=== PATIENT | female | born 1955 | race Caucasian/White ===

== ENCOUNTER 2018-10-31 06:09 | Inpatient (IN) ==
[2018-10-31] MEDS ORDERED: NALOXONE HCL 1 MG/1 ML SYRG ONE (06:19)
[2018-10-31] MEDS ORDERED: NALOXONE HCL 1 MG/1 ML SYRG IV ONE (06:23)
[2018-10-31] MEDS ORDERED: NORMAL SALINE 1,000 ML IV ONE (06:26)
[2018-10-31] MEDS ORDERED: LORazepam 2 MG/ML DISP.SYRIN IV ONE (06:41)
[2018-10-31] MEDS ORDERED: LORazepam 2 MG/ML DISP.SYRIN ONE (06:42)
[2018-10-31 06:56] LABS: Hemoglobin 12.5 gm/dL (12.5-16.0); Mean Cell Volume 108.2 fl (78-100); Mean Corpuscular Hgb Conc 30.5 g/dl (32-36); Mean Platelet Volume 9.7 fl (8-12.5); Platelet Count 413 K/mm3 (150-450); Red Blood Count 3.79 M/mm3 (4.2-5.4); Red Cell Distribution Width 13.3 % (11.5-14.0); White Blood Count 11.4 K/mm3 (4.0-10.5)
[2018-10-31 06:59] LABS: Albumin * 2.4 gm/dl (3.4-5.0); Anion Gap 11.6 mmol/L (6.8-13.8); BUN/Creatinine Ratio 33.8 (9.0-21.6); Bilirubin, Total 0.8 mg/dL (0.0-1.1); Ca. Corrected For Albumin 10.5 mg/dL (8.4-10.2); Calcium * 9.5 mg/dL (7.9-10.9); Potassium 4.6 mmol/L (3.4-4.6); Total Cells Counted 100
[2018-10-31 07:06] LABS: Band 5 % (0-2.0); Dohle Bodies 2+; Monocyte 1 % (0-9); Neutrophil 94 % (42-75); Neutrophil # 10.7 K/mm3 (1.3-6.0); Platelet Estimate Normal (NORMAL); Toxic Granulation 1+
[2018-10-31 07:07] LABS: Macrocytosis 1+
--- NOTE | 2018-10-31 07:09 | ERNOTE ---
<Amari Olivas - Last Filed: 10/31/18 07:51> Dyspnea - Date Date of Service: 10/31/18 - General Presenting Symptoms: shortness of breath, difficulty of breathing Time Seen by Provider: 10/31/18 06:21 Source: EMS notes reviewed Exam Limitations: clinical condition - Immun/Allergies/Home Medications Immunizations: IMMUNIZATION HX Immunizations Up to Date Yes History of Influenza Vaccine Yes Hx Pneumococcal Vaccination Yes Allergies/Adverse Reactions: Allergies Iodinated Contrast- Oral and IV Dye Allergy (Severe, Verified 09/01/18 09:30) Anaphylaxis 03/01/2018 [facility] ER gadobutrol Adverse Reaction (Unknown, Verified 09/01/18 10:54) Nausea/Vomiting/Diarrhea Use of Eovist or Dotarem with prednisone 50mg or 1mg/kg 13hrs, 7hrs, and 1hr prior to procedure and benadryl 50mg or 1mg/kg PO or IM 1 hour prior to procedure. iopamidol Adverse Reaction (Unknown, Verified 09/01/18 09:30) Hypotension Home Medications: HOME MEDICATIONS compressor, for nebulizer See Dose Instructions .ROUTE .MEDSUPPLY #1 ea 03/11/18 [Last Taken Unknown] ipratropium-albuterol 0.5 mg-3 mg(2.5 mg base)/3 mL nebulization soln 3 ml IH BID #180 ml 05/06/18 [Last Taken Unknown] acetaminophen 325 mg/10.15 mL oral solution 325 mg FEEDING TUBE QID PRN ml 08/12/18 [Last Taken Unknown] apixaban 2.5 mg tablet 2.5 mg PO BID 08/12/18 [Last Taken Unknown] folic acid 1 mg tablet 1 mg FEEDING TUBE DAILY 08/12/18 [Last Taken Unknown] ipratropium-albuterol 0.5 mg-3 mg(2.5 mg base)/3 mL nebulization soln 3 ml IH QID PRN ml 08/12/18 [Last Taken Unknown] morphine 30 mg immediate release tablet 15 mg PO Q4H PRN tab 08/12/18 [Last Taken Unknown] multivit and minerals-ferrous gluconate 9 mg iron/15 mL oral liquid 15 ml FEEDING TUBE DAILY 08/12/18 [Last Taken Unknown] polyethylene glycol 3350 17 gram/dose oral powder 17 g FEEDING TUBE BID g 08/12/18 [Last Taken Unknown] sennosides 8.8 mg/5 mL syrup 10 ml FEEDING TUBE BID 08/12/18 [Last Taken Unknown] thiamine HCl (vitamin B1) 100 mg tablet 100 mg FEEDING TUBE DAILY 08/12/18 [Last Taken Unknown] nystatin 100,000 unit/mL oral suspension 5 ml BC QID #60 ml 10/09/18 [Last Taken Unknown] prednisone 20 mg tablet 60 mg PO DAILY #18 tab 10/21/18 [Last Taken Unknown] - History of Present Illness Narrative: patient presents to ed with c/o of unresponsive, known hx of metatatic disease to neck and head, given morphineearlir this am Severity: severe Treatment BRONZE CHASER: other - narcan 1mg iv per paramedics Frequency of episodes: Reports: frequent episodes Modifying Factors - (Improves): Reports: nothing Modifying Factors (Worsens): Reports: nothing Associated Symptoms-Dyspnea: Reports: other - patient unresponsivs Prior Treatment: Reports: recently seen, treated by physician, recently hospitalized Review of Systems - Narrative Narrative: unable to do ros due to unresponsive state Medical History (Last Updated 10/07/18 @ 15:46 by Analy Fam, CHON) Alcohol dependence (Chronic) Failure to thrive in adult (Acute) Onset Date: 08/02/18 Metastatic squamous cell carcinoma (Acute) Onset Date: ~2018 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 Neck mass (Acute) Onset Date: 06/15/[address] Morgan Jaramillo, "critical change of her right neck from last visit. There are three distinct masses noted along the SCM that are concerning for cancer recurrence." Mandibular pain (Acute) Onset Date: 06/15/18 Dr. Morgan Jaramillo, [facility]. 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 Right jaw pain, failure to thrive. * See scanned note from [facility] dated 08/11/2018. Admitted: 08/02/2018, Discharged to home: 08/10/2018. 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 On tube feeding diet Onset Date: 08/02/18 Alcohol dependence in remission Onset Date: Unknown Anxiety Onset Date: Unknown Arthritis Onset Date: Unknown Oropharyngeal dysphagia Anaphylactic reaction Onset Date: ~02/2018 Acute hypoxia following administration of contrast. Appendicitis, acute Bowel obstruction Bowel obstruction Onset Date: Unknown small Dvt femoral (deep venous thrombosis) right and left hx of History of blood transfusion Onset Date: ~2010 History of radiation therapy Onset Date: ~2017 Hospital admission Onset Date: 03/01/18 [facility]. Acute hypoxia following administration of contrast. *See scanned note from [facility]. Measles Shortness of breath Onset Date: Unknown Surgical History: Surgical History (Last Updated 10/05/18 @ 11:40 by Analy Fam, CHON) PEG (percutaneous endoscopic gastrostomy) status (Acute) Onset Date: 08/05/18 H/O neck surgery Onset Date: 11/19/17 Dr. Dmitriy Butts, [facility]. Neck dissection, unilateral. Right neck dissection with sacrifice of XI and part of SCM. H/O skin graft History of appendectomy History of colon surgery Onset Date: Unknown [facility]-exp lap-small bowel removal (necrotic small bowel, 50cm w/perforation) History of esophagogastroduodenoscopy (EGD) Onset Date: 10/03/18 Dr. Madan Guy, [facility]. EGD with PEG tube replacement. ABBY-BETANCOURT low profile 24Fr 3.0 cm G-tube. History of laryngoscopy Onset Date: 06/20/18 Dr. Beckie Izaguirre, [facility]. Hx of appendectomy Onset Date: Unknown Hx of cholecystectomy Onset Date: ~10/08/10 [facility]- open w/cholangiogram Status post insertion of percutaneous endoscopic gastrostomy (PEG) tube Onset Date: 08/05/18 Dr. Alondra Figueredo, [facility]. Family History: Family History (Last Reviewed 09/01/18 @ 09:31 by Nuzhat Potter, CHON) Grandfather CVA (cerebral vascular accident) Sister Lung cancer Mother Kidney failure Social History: Preferred Language Cymraes Smoking Status Light tobacco smoker Abuse History No History of abuse Psych History No pertinent hx Drug Use none (Last Updated 09/23/18 @ 01:09 by David Phoenix DO) No Social History Section defined Physical Exam - Physical Exam General Appearance: Present: lethargic, other - unresponsive Head Exam: Present: other - erosive lesion to right mastoid area breath sound out of lesion, communicate to trachea Eye Exam: Normal inspection: bilateral, Abnormal pupil: bilateral - pinpoint unreactive Ears, Nose, Throat: Present: dry mucous membranes Neck: Present: other - , multiple metastatic nodules to anterior neck Respiratory: Present: respiratory distress, decreased breath sounds, crackles, rales Cardiovascular/Chest: Present: tachycardia Gastrointestinal/Abdominal: Present: normal bowel sounds, nontender, nondistended, no organomegaly Back Exam: Present: normal inspection, normal range of motion, no CVA tenderness, no vertebral tenderness Extremity Exam: Present: normal inspection, decreased range of motion Neurological Exam: Present: disoriented to person, disoriented to time, other - patient obtunded Skin Exam: Present: cool/dry, cyanosis Lymphatic Exam: Present: no adenopathy Progress - Date and Time Seen: Date and Time: 10/31/18 07:51 condition unchanged - Results and Orders Patient's Lab Results:: I have reviewed the patient's lab results. - Vital Signs Patient's Vital Signs:: I have reviewed the patient's vital signs. Vital Signs: Vital Signs 10/31/18 06:10 Temperature 36.5 C Pulse Rate 115 H Respiratory Rate 24 H Blood Pressure 123/64 O2 Sat by Pulse Oximetry 100 - Progress/Reassessment Chief Complaint: Dyspnea Progress:: Unchanged - Transfer of Care Expected Disposition: Admit Plan - Plan Plan: to be admitted Departure Clinical Impression: Metastasis to cervical lymph node - Departure Disposition: Still a patient Condition: Critical Referrals: David Phoenix DO [Primary Care Provider] - <Ruddy De Leon - Last Filed: 10/31/18 08:48> Dyspnea - Immun/Allergies/Home Medications Immunizations: IMMUNIZATION HX Immunizations Up to Date Yes History of Influenza Vaccine Yes Hx Pneumococcal Vaccination Yes Medical History (Last Updated 10/07/18 @ 15:46 by Analy Fam, CHON) Alcohol dependence (Chronic) Failure to thrive in adult (Acute) Onset Date: 08/02/18 Metastatic squamous cell carcinoma (Acute) Onset Date: ~2018 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 Neck mass (Acute) Onset Date: 06/15/[address] Morgan Jaramillo, "critical change of her right neck from last visit. There are three distinct masses noted along the SCM that are concerning for cancer recurrence." Mandibular pain (Acute) Onset Date: 06/15/18 Dr. Morgan Jaramillo, [facility]. 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 Right jaw pain, failure to thrive. * See scanned note from [facility] dated 08/11/2018. Admitted: 08/02/2018, Discharged to home: 08/10/2018. 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 On tube feeding diet Onset Date: 08/02/18 Alcohol dependence in remission Onset Date: Unknown Anxiety Onset Date: Unknown Arthritis Onset Date: Unknown Oropharyngeal dysphagia Anaphylactic reaction Onset Date: ~02/2018 Acute hypoxia following administration of contrast. Appendicitis, acute Bowel obstruction Bowel obstruction Onset Date: Unknown small Dvt femoral (deep venous thrombosis) right and left hx of History of blood transfusion Onset Date: ~2010 History of radiation therapy Onset Date: ~2016 Hospital admission Onset Date: 03/01/18 [facility]. Acute hypoxia following administration of contrast. *See scanned note from [facility]. Measles Shortness of breath Onset Date: Unknown Surgical History: Surgical History (Last Updated 10/05/18 @ 11:40 by Analy Fam RN) PEG (percutaneous endoscopic gastrostomy) status (Acute) Onset Date: 08/05/18 H/O neck surgery Onset Date: 11/19/17 Dr. Dmitriy Butts, [facility]. Neck dissection, unilateral. Right neck dissection with sacrifice of XI and part of SCM. H/O skin graft History of appendectomy History of colon surgery Onset Date: Unknown [facility]-exp lap-small bowel removal (necrotic small bowel, 50cm w/perforation) History of esophagogastroduodenoscopy (EGD) Onset Date: 10/03/18 Dr. Madan Guy, [facility]. EGD with PEG tube replacement. ABBY-BETANCOURT low profile 24Fr 3.0 cm G-tube. History of laryngoscopy Onset Date: 06/20/18 Dr. Beckie Izaguirre, [facility]. Hx of appendectomy Onset Date: Unknown Hx of cholecystectomy Onset Date: ~10/08/10 [facility]- open w/cholangiogram Status post insertion of percutaneous endoscopic gastrostomy (PEG) tube Onset Date: 08/05/18 Dr. Alondra Figueredo, [facility]. Family History: Family History (Last Reviewed 09/01/18 @ 09:31 by Nuzhat Potter RN) Grandfather CVA (cerebral vascular accident) Sister Lung cancer Mother Kidney failure Social History: Preferred Language Cymraes Smoking Status Light tobacco smoker Abuse History No History of abuse Psych History No pertinent hx Drug Use none (Last Updated 09/23/18 @ 01:09 by David Phoenix DO) No Social History Section defined Progress - Results and Orders Patient's Lab Results:: I have reviewed the patient's lab results. - Vital Signs Patient's Vital Signs:: I have reviewed the patient's vital signs. Vital Signs: Vital Signs 10/31/18 06:10 10/31/18 06:22 10/31/18 06:37 Temperature 36.5 C 36.5 C Pulse Rate 115 H 139 H 128 H Respiratory Rate 24 H 13 24 H Blood Pressure 123/64 88/67 L 142/63 O2 Sat by Pulse Oximetry 100 100 10/31/18 07:22 Temperature Pulse Rate 114 H Respiratory Rate Blood Pressure 107/56 O2 Sat by Pulse Oximetry 97 - X-Ray X-Ray #1 X-Ray: chest Interpretation: Interp. by me X-ray Comments: I reviewed official radiology report - Progress/Reassessment Progress Note-Subjective: 10/31/18 08:45 Patient was checked out to me by Dr Olivas at am shift change pending contacting Dr Alvarado for admission. Dr Olivas had spoken with patients daughter and DNR was completed. Comfort measures only at this time per Dr Olivas and family. He spoke with Dr Phoenix who requested Dr Alvarado admit. Dr Olivas was unable to contact dr Alvarado so patient was checked out to me until Dr Frederick could be contacted. I did get ahold of Dr Alvarado who will admit for comfort measures. Please see Dr Olivas's note for full H&P.
[2018-10-31] MEDS ORDERED: POLYVINYL ALCOHOL 150 DROP BTL EACHEYE PRN (10:50)
[2018-10-31] MEDS: MORPHINE SULFATE 2 MG/ML DISP.SYRIN IV PRN ×5 (11:13→22:14)
[2018-10-31] MEDS: LORazepam 2 MG/ML DISP.SYRIN IV PRN ×4 (12:30→20:52)
--- NOTE | 2018-10-31 16:52 | HP ---
Chief Complaint - Chief Complaint Date of Service: 10/31/18 Time of Service: 09:15 Chief Complaint: Altered mental status History of Present Illness: 65-year-old female with past medical history of metastatic squamous cell carcinoma, arthritis, alcohol dependence, anxiety presents from home due to altered mental status. Daughter reportedly gave the patient a dose of morphine early this morning and she has been unresponsive since. On presentation to the emergency department she continued to be unresponsive status post Narcan. After discussion with the patient's daughter it was determined that the daughter wanted to place her on comfort measures. 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 Neck mass (Acute) Onset Date: 06/15/[address] Morgan Jaramillo, "critical change of her right neck from last visit. There are three distinct masses noted along the SCM that are concerning for cancer recurrence." Mandibular pain (Acute) Onset Date: 06/15/18 Dr. Morgan Jaramillo, [facility]. 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. Right jaw pain, failure to thrive. * See scanned note from [facility] dated 08/11/2018. Admitted: 08/02/2018, Discharged to home: 08/10/2018. 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 On tube feeding diet Onset Date: 08/02/18 Alcohol dependence in remission Onset Date: Unknown Anxiety Onset Date: Unknown Arthritis Onset Date: Unknown Oropharyngeal dysphagia Anaphylactic reaction Onset Date: ~02/2018 Acute hypoxia following administration of contrast. Appendicitis, acute Bowel obstruction Bowel obstruction Onset Date: Unknown small Dvt femoral (deep venous thrombosis) right and left hx of History of blood transfusion Onset Date: ~2010 History of radiation therapy Onset Date: ~2016 Hospital admission Onset Date: 03/01/[address] [facility]. Acute hypoxia following administration of contrast. *See scanned note from [facility]. Measles Shortness of breath Onset Date: Unknown Surgical History: Surgical History (Last Reviewed 10/31/18 @ 10:08 by Lucila Ordonez, CHON) PEG (percutaneous endoscopic gastrostomy) status (Acute) Onset Date: 08/05/18 H/O neck surgery Onset Date: 11/19/17 Dr. Dmitriy Butts, [facility]. Neck dissection, unilateral. Right neck dissection with sacrifice of XI and part of SCM. H/O skin graft History of appendectomy History of colon surgery Onset Date: Unknown [facility]-exp lap-small bowel removal (necrotic small bowel, 50cm w/perforation) History of esophagogastroduodenoscopy (EGD) Onset Date: 10/03/18 Dr. Madan Guy, [facility]. EGD with PEG tube replacement. ABBY-BETANCOURT low profile 24Fr 3.0 cm G-tube. History of laryngoscopy Onset Date: 06/20/18 Dr. Beckie Izaguirre, [facility]. Hx of appendectomy Onset Date: Unknown Hx of cholecystectomy Onset Date: ~10/08/[address] [facility]- open w/cholangiogram Status post insertion of percutaneous endoscopic gastrostomy (PEG) tube Onset Date: 08/05/18 Dr. Alondra Figueredo, [facility]. Family History: Family History (Last Reviewed 10/31/18 @ 10:08 by Lucila Ordonez, CHON) Grandfather CVA (cerebral vascular accident) Sister Lung cancer Mother Kidney failure Social History: Patient Lives/Resources Home Utilized Preferred Language Danish Smoking Status Unknown if ever smoked Have you smoked in the past 12 NA months Abuse History No History of abuse Psych History No pertinent hx Drug Use none (Last Updated 09/23/18 @ 01:09 by David Phoenix DO) No Social History Section defined Review Of Systems (GEN) - Review of Systems Neurological: Present: Other - Unresponsive Misc: All systems neg except as marked Immunizations: IMMUNIZATION HX Immunizations Up to Date Yes History of Influenza Vaccine Yes Hx Pneumococcal Vaccination Yes Allergies/Adverse Reactions: Allergies Allergy/AdvReac Type Severity Reaction Status Date / Time Iodinated Contrast- Oral and Allergy Severe Anaphylaxis Verified 10/31/18 10:10 IV Dye gadobutrol AdvReac Unknown Nausea/Vomi Verified 10/31/18 10:10 ting/Diarrh ea iopamidol AdvReac Unknown Hypotension Verified 10/31/18 10:10 Home Medications: HOME MEDICATIONS compressor, for nebulizer See Dose Instructions .ROUTE .MEDSUPPLY #1 ea 03/11/18 [Last Taken Unknown] ipratropium-albuterol 0.5 mg-3 mg(2.5 mg base)/3 mL nebulization soln 3 ml IH BID #180 ml 05/06/18 [Last Taken Unknown] acetaminophen 325 mg/10.15 mL oral solution 325 mg FEEDING TUBE QID PRN ml 08/12/18 [Last Taken Unknown] apixaban 2.5 mg tablet 2.5 mg PO BID 08/12/18 [Last Taken Unknown] folic acid 1 mg tablet 1 mg FEEDING TUBE DAILY 08/12/18 [Last Taken Unknown] ipratropium-albuterol 0.5 mg-3 mg(2.5 mg base)/3 mL nebulization soln 3 ml IH QID PRN ml 08/12/18 [Last Taken Unknown] morphine 30 mg immediate release tablet 15 mg PO Q4H PRN tab 08/12/18 [Last Taken Unknown] multivit and minerals-ferrous gluconate 9 mg iron/15 mL oral liquid 15 ml FEEDING TUBE DAILY 08/12/18 [Last Taken Unknown] polyethylene glycol 3350 17 gram/dose oral powder 17 g FEEDING TUBE BID g 08/12/18 [Last Taken Unknown] sennosides 8.8 mg/5 mL syrup 10 ml FEEDING TUBE BID 08/12/18 [Last Taken Unknown] thiamine HCl (vitamin B1) 100 mg tablet 100 mg FEEDING TUBE DAILY 08/12/18 [Last Taken Unknown] nystatin 100,000 unit/mL oral suspension 5 ml BC QID #60 ml 10/09/18 [Last Taken Unknown] prednisone 20 mg tablet 60 mg PO DAILY #18 tab 10/21/18 [Last Taken Unknown] Exam - Exam Vital Signs: Vital Signs - Last Taken Temp 36.6 C 10/31/18 14:48 Pulse 92 10/31/18 14:48 Resp 13 10/31/18 08:37 BP 95/59 10/31/18 14:48 Pulse Ox 88 L 10/31/18 14:48 Constitutional: Present: Thin and frail, Looks Older than stated age ENT Exam: Present: other - Mass noted on the right lateral neck. Back Exam: Present: normal inspection Respiratory: Present: accessory muscle use, rhonchi Cardiovascular/Chest: Present: regular rate, rhythm, no edema Peripheral Pulses: dorsalis-pedis (R): 1+, dorsalis-pedis (L): 1+ Abdomen: Present: Normal bowel sounds, soft, nontender, other - PEG tube in place Extremity: Present: no pedal edema Skin Exam: Present: normal color, warm/dry Neurologic: Present: other - Unresponsive to verbal or tactile stimuli. Absent: alert Eye contact: Absent: good eye contact Diagnostic Studies: Abnormal Lab Results 10/31/18 10/31/18 Range/Units 06:40 06:40 WBC 11.4 H (4.0-10.5) K/mm3 RBC 3.79 L (4.2-5.4) M/mm3 MCV 108.2 H (78-100) fl MCH 33.0 H (27-31) pg MCHC 30.5 L (32-36) g/dl Neutrophils % (Manual) 94 H (42-75) % Band Neuts % (Manual) 5 H (0-2.0) % Neutrophils # (Manual) 10.7 H (1.3-6.0) K/mm3 Carbon Dioxide 33.0 H (24-32.6) mmol/L BUN 27 H D (3-23) mg/dL BUN/Creatinine Ratio 33.8 H (9.0-21.6) Random Glucose 199 H (70-110) mg/dL Calcium Adj for Albumin 10.5 H (8.4-10.2) mg/dL AST 358 H (0-48) U/L ALT 275 H (19-67) U/L Albumin 2.4 L (3.4-5.0) gm/dl Laboratory Results WBC 11.4 K/mm3 (4.0-10.5) H 10/31/18 06:40 RBC 3.79 M/mm3 (4.2-5.4) L 10/31/18 06:40 Hgb 12.5 gm/dL (12.5-16.0) 10/31/18 06:40 Hct 41.0 % (37.0-47.0) 10/31/18 06:40 MCV 108.2 fl (78-100) H 10/31/18 06:40 MCH 33.0 pg (27-31) H 10/31/18 06:40 MCHC 30.5 g/dl (32-36) L 10/31/18 06:40 RDW 13.3 % (11.5-14.0) 10/31/18 06:40 Plt Count 413 K/mm3 (150-450) 10/31/18 06:40 MPV 9.7 fl (8-12.5) 10/31/18 06:40 Neutrophils % (Manual) 94 % (42-75) H 10/31/18 06:40 Band Neuts % (Manual) 5 % (0-2.0) H 10/31/18 06:40 Lymphocytes % (Manual) No Print 10/31/18 06:40 Monocytes % (Manual) 1 % (0-9) 10/31/18 06:40 Neutrophils # (Manual) 10.7 K/mm3 (1.3-6.0) H 10/31/18 06:40 Monocytes # (Manual) 0.1 k/mm3 (0.0-1.0) 10/31/18 06:40 Toxic Granulation 1+ 10/31/18 06:40 Toxic Vacuolation 1+ 10/31/18 06:40 Dohle Bodies 2+ 10/31/18 06:40 Platelet Estimate Normal (NORMAL) 10/31/18 06:40 Macrocytosis 1+ 10/31/18 06:40 Sodium 137 mmol/L (132-142) 10/31/18 06:40 Plasma Sodium 139 mmol/L (130-142) 10/31/18 06:40 Potassium 4.6 mmol/L (3.4-4.6) D 10/31/18 06:40 Chloride 97 mmol/L (97-106) 10/31/18 06:40 Carbon Dioxide 33.0 mmol/L (24-32.6) H 10/31/18 06:40 Anion Gap 11.6 mmol/L (6.8-13.8) 10/31/18 06:40 BUN 27 mg/dL (3-23) H D 10/31/18 06:40 Creatinine 0.80 mg/dL (0.4-1.4) 10/31/18 06:40 Est GFR (Non-Af Amer) 77 mL/min (60-130) D 10/31/18 06:40 BUN/Creatinine Ratio 33.8 (9.0-21.6) H 10/31/18 06:40 Random Glucose 199 mg/dL (70-110) H 10/31/18 06:40 Calcium 9.5 mg/dL (7.9-10.9) 10/31/18 06:40 Calcium Adj for Albumin 10.5 mg/dL (8.4-10.2) H 10/31/18 06:40 Total Bilirubin 0.8 mg/dL (0.0-1.1) 10/31/18 06:40 AST 358 U/L (0-48) H 10/31/18 06:40 ALT 275 U/L (19-67) H 10/31/18 06:40 Alkaline Phosphatase 95 U/L (50-170) 10/31/18 06:40 Total Protein 7.0 gm/dL (6.2-8.2) 10/31/18 06:40 Albumin 2.4 gm/dl (3.4-5.0) L 10/31/18 06:40 Assessment/Plan - Narrative Narrative: 65-year-old female with past medical history of metastatic squamous cell carcinoma, arthritis, alcohol dependence, anxiety presents from home due to altered mental status. Daughter reportedly gave the patient a dose of morphine early this morning and she has been unresponsive since. On presentation to the emergency department she continued to be unresponsive status post Narcan. After discussion with the patient's daughter it was determined that the daughter wanted to place her on comfort measures. - Assessment/Plan (1) Metastatic squamous cell carcinoma Problem: Chronic (2) Neck mass Problem: Chronic
[2018-11-01] MEDS: LORazepam 2 MG/ML DISP.SYRIN IV PRN (01:06)
[2018-11-01] MEDS: MORPHINE SULFATE 2 MG/ML DISP.SYRIN IV PRN ×2 (04:29→08:08)
[2018-11-01 11:06] VITALS: BP 0/0
--- NOTE | 2018-11-08 11:02 | DS ---
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 She was at end stage and had been treating severe pain with morphine at home. She was found unresponsive by her daughter at home who brought her to the ER. It was determined to make her comfort cares. She was admitted on comfort care orders and the following morning at 0905. Procedures Performed: none - Additional Data Confirmation of as documented by pronouncing clinician: no pulse, no respirations, no heart sounds, pupils fixed and dilated
== END 2018-11-01 09:05 | disposition expired | DRG 841 ==
LOC: MS 06:09 → ER 06:09 → MS 09:22
PROVIDERS: ADMIT Internal Medicine; ATTEND Family Medicine
CPT/HCPCS: 36415; 71010; 71045; 80053; 85025; 87081; 93005; 96361; 96374; 96375; 96376; 99285